=== PATIENT | male | born 2000 | race Caucasian/White ===

== ENCOUNTER 2021-08-06 23:03 | Emergency (ER) | payer OTHER ==
[2021-08-06 23:34] VITALS: BP 139/79; PULSE 80; TEMP 98.1; BMI 20.8
[2021-08-07] MEDS ORDERED: DICYCLOMINE HCL 20 MG TABLET PO ONE (00:30)
[2021-08-07] MEDS ORDERED: MAG HYDROX/AL HYDROX/SIMETH 30 ML UNIT-DOSE CUP PO ONE (00:30)
[2021-08-07] MEDS ORDERED: PANTOPRAZOLE 40 MG TABLET PO ONE (00:30)
[2021-08-07] MEDS ORDERED: DICYCLOMINE HCL 10 MG CAPSULE ONE (00:40)
[2021-08-07 00:55] LABS: BASO % 0.7 % (0-2.0); EOS % 4.1 % (0-4.5); HEMATOCRIT 46.1 % (35.4-49); LYMPH % 20.2 % (8-40); MCH 30.9 pg (25.7-33.7); MCHC 34.7 g/dl (32.0-35.9); MEAN PLT VOLUME 6.8 fl (7.5-11.1); MONO % 11.8 % (3.8-10.2); NEUT % 63.2 % (42.8-82.8); PLATELET COUNT 210 10^3/uL (134-434); RBC 5.18 M/mm3 (4.00-5.60); RDW 13.1 % (11.9-15.9); WHITE BLOOD COUNT 6.2 K/mm3 (4.0-10.0)
[2021-08-07 01:16] LABS: ALBUMIN 3.9 g/dl (3.4-5.0); BLOOD UREA NITROGEN 12.5 mg/dL (7-18); CALCIUM 9.1 mg/dL (8.5-10.1)
[2021-08-07 01:19] LABS: CREATININE 0.9 mg/dL (0.55-1.3)
[2021-08-07 01:21] LABS: BILIRUBIN,TOTAL 0.3 mg/dL (0.2-1); TOT PROT 7.3 g/dl (6.4-8.2)
== END 2021-08-07 02:01 | disposition home or self-care (01) ==
LOC: EDBD → JER 23:03
DX: R10.13 Epigastric pain (principal)
CPT/HCPCS: 36415; 80053; 83690; 85025; 99283-25

== ENCOUNTER 2021-08-08 23:47 | Emergency (ER) | payer OTHER ==
[2021-08-08 23:58] VITALS: BMI 20.8
[2021-08-09] MEDS ORDERED: PANTOPRAZOLE SODIUM 40 MG VIAL IVPUSH ONE (00:40)
[2021-08-09] MEDS ORDERED: FAMOTIDINE 20 MG/50 ML IVPB 20 MG/50 ML MG IVPB ONE ×2 (00:40→00:44)
[2021-08-09] MEDS ORDERED: PANTOPRAZOLE SODIUM 40 MG VIAL ONE (00:44)
[2021-08-09 02:17] LABS: BASO % 0.8 % (0-2.0); EOS % 4.8 % (0-4.5); HEMATOCRIT 47.4 % (35.4-49); HEMOGLOBIN 17.1 GM/dL (11.7-16.9); LYMPH % 25.3 % (8-40); MCH 31.6 pg (25.7-33.7); MEAN CELL VOLUME 87.6 fl (80-96); MONO % 10.9 % (3.8-10.2); NEUT % 58.2 % (42.8-82.8); PLATELET COUNT 230 10^3/uL (134-434); RBC 5.41 M/mm3 (4.00-5.60); RDW 13.3 % (11.9-15.9); WHITE BLOOD COUNT 6.9 K/mm3 (4.0-10.0)
[2021-08-09] MEDS ORDERED: ACETAMINOPHEN 1000 MG/100 ML VIAL IVPB ONE (02:17)
[2021-08-09] MEDS ORDERED: ACETAMINOPHEN INJECTION 100 ML IVPB ONE (02:25)
[2021-08-09 02:34] LABS: ALBUMIN 4.5 g/dl (3.4-5.0); BLOOD UREA NITROGEN 15.3 mg/dL (7-18)
[2021-08-09 02:37] LABS: CREATININE 1.2 mg/dL (0.55-1.3)
[2021-08-09 02:38] LABS: BILIRUBIN,TOTAL 0.7 mg/dL (0.2-1); TOT PROT 8.2 g/dl (6.4-8.2)
[2021-08-09 03:05] VITALS: BP 122/76; PULSE 75; TEMP 98.1
== END 2021-08-09 03:05 | disposition home or self-care (01) ==
LOC: EDBD 23:47 → JER 23:47
PROC: 3E033NZ Introduction of Analgesics, Hypnotics, Sedatives into Peripheral Vein, Percutaneous Approach (ICD-10-PCS; principal; 2021-08-09)
PROC: 3E033GC Introduction of Other Therapeutic Substance into Peripheral Vein, Percutaneous Approach (ICD-10-PCS; 2021-08-09)
PROC: 3E033GC Introduction of Other Therapeutic Substance into Peripheral Vein, Percutaneous Approach (ICD-10-PCS; 2021-08-09)
DX: R10.13 Epigastric pain (principal)
CPT/HCPCS: 36415; 76705-TC; 80053; 83690; 85025; 99284-25; J0131

== ENCOUNTER 2022-09-15 19:31 | Emergency (ER) | payer OTHER ==
[2022-09-15 20:12] VITALS: BP 119/76; PULSE 82; RESP 18; TEMP 98.6; BMI 21.2
[2022-09-15] MEDS ORDERED: DEXAMETHASONE SOD PHOSPHATE 10 MG/1 ML VIAL IVPUSH ONE (21:51)
[2022-09-15] MEDS ORDERED: DEXAMETHASONE SOD PHOSPHATE 10 MG/1 ML VIAL ONE (22:02)
[2022-09-15 22:26] LABS: BASO % 0.4 % (0-2.0); EOS % 7.9 % (0-4.5); HEMATOCRIT 45.1 % (35.4-49); HEMOGLOBIN 15.7 GM/dL (11.7-16.9); LYMPH % 21.7 % (8-40); MCH 31.9 pg (25.7-33.7); MCHC 34.8 g/dl (32.0-35.9); MEAN CELL VOLUME 91.7 fl (80-96); MEAN PLT VOLUME 6.8 fl (7.5-11.1); MONO % 11.7 % (3.8-10.2); NEUT % 58.3 % (42.8-82.8); PLATELET COUNT 251 10^3/uL (134-434); RBC 4.92 M/mm3 (4.00-5.60); RDW 13.9 % (11.9-15.9); WHITE BLOOD COUNT 6.7 K/mm3 (4.0-10.0)
[2022-09-15 22:48] LABS: CALCIUM 9.2 mg/dL (8.5-10.1)
[2022-09-15 22:49] LABS: ALBUMIN 4.1 g/dl (3.4-5.0); BLOOD UREA NITROGEN 11.5 mg/dL (7-18)
[2022-09-15 22:52] LABS: CREATININE 0.9 mg/dL (0.55-1.3)
[2022-09-15 22:53] LABS: TOT PROT 7.5 g/dl (6.4-8.2)
[2022-09-15 22:54] LABS: BILIRUBIN,TOTAL 0.7 mg/dL (0.2-1)
[2022-09-15 23:05] LABS: ACTIVATED PTT 33.9 SECONDS (25.2-36.5); INR 1.11 (0.83-1.09); PROTHROMBIN TIME (PATIENT) 12.8 SEC (9.7-13.0)
== END 2022-09-15 23:38 | disposition home or self-care (01) ==
LOC: JER 19:31
PROC: 3E0333Z Introduction of Anti-inflammatory into Peripheral Vein, Percutaneous Approach (ICD-10-PCS; principal; 2022-09-15)
DX: R21 Rash and other nonspecific skin eruption (principal)
CPT/HCPCS: 36415; 80053; 85025; 85610; 85730; 99284-25; J1100